=== PATIENT | female | born 1975 | race Caucasian/White ===

== ENCOUNTER 2017-01-20 04:04 | Inpatient (IN) | payer OTHER ==
[~2017-01-20] VITALS: Ht 195.6 cm; Wt 198.3 kg
[2017-01-20 05:18] LABS: CHLORIDE 102 mEq/L (99-109); POTASSIUM 3.8 mEq/L (3.7-5.4); SODIUM 135 mEq/L (136-147)
[2017-01-20 05:20] LABS: GLUCOSE 143 mg/dL (70-99)
[2017-01-20 05:21] LABS: ANION GAP 15 MEQ/L (2-14)
[2017-01-20 05:23] LABS: SERUM ETHYL ALCOHOL < 10 mg/dL
[2017-01-20 05:24] LABS: GFR ESTIMATE (CALCULATED) > 59 mL/min/
[2017-01-20 05:25] LABS: UREA NITROGEN (BUN) 20 mg/dL (9-23)
[2017-01-20 05:35] LABS: BASOPHIL COUNT 0.1 K/uL (0-0.1); EOSINOPHIL (%) 0.1 % (0-5); HEMATOCRIT 46.5 % (36.0-46.0); IMMATURE GRANULOCYTE (%) 0.5 % (0.0-0.7); IMMATURE GRANULOCYTE COUNT 0.1 K/uL; INSTRUMENT ABS NEUTROPHIL CT 13.3 K/uL; LYMPHOCYTE COUNT 2.1 K/uL (1.0-2.8); MCH 28.5 PG (29.0-34.0); MCHC 33.8 G/DL (30.0-36.0); MCV 84.5 FL (83-99); MEAN PLAT.VOLUME 11.4 uM^3 (9.5-12.4); MONOCYTE (%) 5.7 % (3-12); MONOCYTE COUNT 0.9 K/uL (0-0.8); NEUTROPHIL (%) 80.5 % (45-76); NEUTROPHIL COUNT 13.3 K/uL (1.8-6.4); PLATELET COUNT 326 K/uL (156-360); RBC DIS.WIDTH-CV 13.2 % (11.8-14.6); RBC DIS.WIDTH-SD 41.4 % (39-53); WHITE BLOOD COUNT 16.5 K/uL (4.1-10.2)
[2017-01-20 08:18] LABS: ADD MIUA? YES; BILIRUBIN NEGATIVE; BLOOD NEGATIVE; COLOR AMBER ((YELLOW)); GLUCOSE (STRIP) NEGATIVE; KETONES 80; LEUKOCYTES NEGATIVE; NITRITE NEGATIVE; PROTEIN (STRIP) 30; SPECIFIC GRAVITY 1.032 (1.000-1.030)
[2017-01-20 08:20] LABS: ADD MEDTOX COMMENT Y; AMPHETAMINE NEGATIVE (500 ng/mL); BARBITURATES NEGATIVE (200 ng/mL); BENZODIAZEPINES PRESUMPTIVE POSITIVE (150 ng/mL); COCAINE NEGATIVE (150 ng/mL); INTERNAL CONTROLS VALID? YES; METHADONE NEGATIVE (200 ng/mL); METHAMPHETAMINE NEGATIVE (500 ng/mL); OPIATES (MORPHINE) NEGATIVE (100 ng/mL); OXYCODONE NEGATIVE (100 ng/mL); PHENCYCLIDINE NEGATIVE (25 ng/mL); PROPOXYPHENE NEGATIVE (300 ng/mL); THC CANNABINOIDS PRESUMPTIVE POSITIVE (50 ng/mL); TRICYCLIC ANTIDEPRESSANTS NEGATIVE (300 ng/mL)
[2017-01-20 08:40] LABS: CASTS PRESENT /LPF; EPITHELIAL CELLS 2+ /HPF; HYALINE CASTS 0-5 /LPF; MUCUS 3+ /LPF
[2017-01-20 08:41] LABS: BACTERIA NONE SEEN /HPF; CRYSTALS NONE SEEN; RED BLOOD CELLS 0-5 /HPF (0-5); UCUL ADDED? NO; WHITE BLOOD CELLS 0-5 /HPF (0-5)
[2017-01-20 09:07] LABS: BENZODIAZEPINES QUANT VALUE 0 NG/ML; BENZODIAZEPINES, URINE SCREEN Negative (200 ng/mL)
[2017-01-20 12:08] VITALS: BP 135/69
[2017-01-20] MEDS ORDERED: SEROQUEL200 MG PO (13:03)
[2017-01-20] MEDS ORDERED: SEROQUEL50 MG PO (13:05)
[2017-01-20] MEDS ORDERED: GLUCOPHAGE XR,500 MG PO (13:07)
[2017-01-20] MEDS ORDERED: SPIRONOLACTONE100 MG PO (13:08)
[2017-01-20] MEDS ORDERED: LISINOPRIL20 MG PO (13:09)
[2017-01-20] MEDS ORDERED: BAYER CHEWABLE81 MG PO (13:11)
[2017-01-20] MEDS ORDERED: ESTRADIOL2 MG PO (13:17)
[2017-01-20 15:21] VITALS: BP 166/89
[2017-01-20 23:16] LABS: POINT-OF-CARE METER ID UU14188576; POINT-OF-CARE USER ID BHSSMG
[2017-01-21 02:12] VITALS: BP 118/68
[2017-01-22] MEDS ORDERED: NICORELIEF2 MG BC (15:27)
[2017-01-22] MEDS ORDERED: QUETIAPINE FUMA25 MG PO (15:29)
[2017-01-22] MEDS ORDERED: QUETIAPINE FUMA50 MG PO (15:30)
== END 2017-01-21 04:08 | DRG 885 ==
LOC: EME → EDSEX 04:04 → EME 04:04 → EDBD 04:04 → EDOF 09:59 → 1WEST 12:04 → ENRESERV 12:04 → 1WEST 01-21 04:08
PROVIDERS: Emergency Medicine; Psychiatry & Neurology Psychiatry
DX: F20.9 Schizophrenia, unspecified (principal); R45.850 Homicidal ideations; N17.9 Acute kidney failure, unspecified; R45.6 Violent behavior; I10 Essential (primary) hypertension; R73.03 Prediabetes; E03.9 Hypothyroidism, unspecified; F64.9 Gender identity disorder, unspecified; F17.200 Nicotine dependence, unspecified, uncomplicated; E66.9 Obesity, unspecified; Z68.43 Body mass index [BMI] 50.0-59.9, adult; Z91.14 Patient's other noncompliance with medication regimen; Z78.1 Physical restraint status
CPT/HCPCS: 71010; 80048; 81003; 82948; 84999; 85025; 90837; 99281; 99285; G0480; J1630; J2060; Q0177

== ENCOUNTER 2017-01-21 04:05 | Inpatient (IN) | payer OTHER ==
[2017-01-21] VITALS (9 sets, daily range): BP systolic 82–157; BP diastolic 50–91
[~2017-01-21] VITALS: Ht 195.6 cm; Wt 201.0 kg
[~2017-01-21 04:05] MED LIST: BAYER CHEWABLE81 MG PO; ESTRADIOL2 MG PO; GLUCOPHAGE XR,500 MG PO; LISINOPRIL20 MG PO; SEROQUEL200 MG PO; SEROQUEL50 MG PO; SPIRONOLACTONE100 MG PO
[2017-01-21 06:24] LABS: METH RESISTANT S AUREUS PCR NEGATIVE (NEGATIVE)
[2017-01-21 06:26] LABS: PROBE CHECK PASS; SPECIMEN PROCESSING CONTROL PASS
[2017-01-21 06:46] LABS: HEMATOCRIT 42.3 % (36.0-46.0); MCH 28.4 PG (29.0-34.0); MCHC 33.3 G/DL (30.0-36.0); MCV 85.1 FL (83-99); MEAN PLAT.VOLUME 10.9 uM^3 (9.5-12.4); PLATELET COUNT 240 K/uL (156-360); RBC DIS.WIDTH-CV 13.2 % (11.8-14.6); RBC DIS.WIDTH-SD 40.5 % (39-53); RED BLOOD COUNT 4.97 M/uL (3.80-5.20); WHITE BLOOD COUNT 13.4 K/uL (4.1-10.2)
[2017-01-21 07:09] LABS: ALKALINE PHOSPHATASE 46 IU/L (3-129); ANION GAP 11 MEQ/L (2-14); CHLORIDE 99 MEQ/L (99-109); GFR ESTIMATE (CALCULATED) 26 mL/min/; GLUCOSE 117 mg/dL (70-99); SAMPLE HEMOLYSIS CHECK 0; SAMPLE ICTERIC CHECK 0; SAMPLE LIPEMIA CHECK 0; SODIUM 134 MEQ/L (136-147); TOTAL BILIRUBIN 0.9 MG/DL (0.0-1.0); UREA NITROGEN (BUN) 24 mg/dL (9-23)
[2017-01-21 10:23] LABS: BASE EXCESS -3.4 mEq/L (-3 to +3); BICARBONATE 21.4 mEq/L (22-26); CARBOXY HGB 2.2 % (0-5); COMMENTS - BLOOD GASES C+; DEVICE RA; METHEMOGLOBIN 1.5 % (0-1.5); PCO2 37 mm Hg (35-45); PO2 75 mm Hg (80-100); SITE LR; pH 7.37 (7.35-7.45)
[2017-01-21 10:24] LABS: TOTAL RESP RATE 16 resp/min
[2017-01-21 12:04] LABS: POINT-OF-CARE METER ID UU13113731
[2017-01-21 21:26] LABS: POINT-OF-CARE METER ID UU13113731
[2017-01-22] VITALS: BP 159/88
[2017-01-22 04:00] VITALS: BP 173/105
[2017-01-22 05:55] LABS: BASOPHIL COUNT 0.1 K/uL (0-0.1); EOSINOPHIL (%) 0.7 % (0-5); EOSINOPHIL COUNT 0.1 K/uL (0-0.3); HEMATOCRIT 41.3 % (36.0-46.0); IMMATURE GRANULOCYTE (%) 0.4 % (0.0-0.7); INSTRUMENT ABS NEUTROPHIL CT 6.8 K/uL; LYMPHOCYTE COUNT 3.1 K/uL (1.0-2.8); MCH 29.6 PG (29.0-34.0); MCHC 34.9 G/DL (30.0-36.0); MEAN PLAT.VOLUME 11.7 uM^3 (9.5-12.4); MONOCYTE (%) 7.2 % (3-12); MONOCYTE COUNT 0.8 K/uL (0-0.8); NEUTROPHIL (%) 62.8 % (45-76); NEUTROPHIL COUNT 6.8 K/uL (1.8-6.4); PLATELET COUNT 248 K/uL (156-360); RBC DIS.WIDTH-CV 13.4 % (11.8-14.6); RBC DIS.WIDTH-SD 41.7 % (39-53); RED BLOOD COUNT 4.86 M/uL (3.80-5.20); WHITE BLOOD COUNT 10.9 K/uL (4.1-10.2)
[2017-01-22 06:19] LABS: ALKALINE PHOSPHATASE 50 IU/L (3-129); ANION GAP 7 MEQ/L (2-14); CHLORIDE 102 MEQ/L (99-109); GLUCOSE 106 mg/dL (70-99); POTASSIUM 4.3 MEQ/L (3.7-5.4); SAMPLE HEMOLYSIS CHECK 0; SAMPLE ICTERIC CHECK 0; SAMPLE LIPEMIA CHECK 0; SODIUM 134 MEQ/L (136-147); UREA NITROGEN (BUN) 14 mg/dL (9-23)
[2017-01-22 06:20] LABS: GFR ESTIMATE (CALCULATED) > 59 mL/min/; TOTAL BILIRUBIN 0.7 MG/DL (0.0-1.0)
[2017-01-22 08:55] VITALS: BP 151/90
[2017-01-22 10:06] LABS: FERRITIN 460 NG/ML (10-291)
[2017-01-22 11:17] LABS: HBSG INDEX 0.16; HPCA INDEX 0.15
[2017-01-22 11:19] LABS: ANTI-HEPATITIS A VIRUS (IGM) Nonreactive; ANTI-HEPATITIS B CORE (IGM) Nonreactive; HBC IgM INDEX 0.07
[2017-01-22 12:31] LABS: POINT-OF-CARE METER ID UU14208751
[2017-01-22 12:45] VITALS: BP 154/85
[2017-01-22 15:10] LABS: IRON 121 MCG/DL (35-150)
[2017-01-22] MEDS ORDERED: NICORELIEF2 MG BC (15:27)
[2017-01-22] MEDS ORDERED: QUETIAPINE FUMA25 MG PO (15:29)
[2017-01-22] MEDS ORDERED: QUETIAPINE FUMA50 MG PO (15:30)
[2017-01-22 16:30] VITALS: BP 126/81
[2017-01-22 16:45] LABS: POINT-OF-CARE METER ID UU14208751
[2017-01-23] MEDS ORDERED: QUETIAPINE FUMA25 MG PO (10:28)
[2017-01-23] MEDS ORDERED: QUETIAPINE FUMA50 MG PO (10:28)
== END 2017-01-22 16:42 | DRG 189 ==
LOC: 4WEST 04:05 → ENRESERV 04:05 → 4WEST 04:09 → CANRESERV 01-22 10:45 → ENRESERV 01-22 10:45 → CANRESERV 01-22 10:50 → ENRESERV 01-22 10:50 → 4WEST 01-22 16:42
PROVIDERS: Internal Medicine
DX: J96.01 Acute respiratory failure with hypoxia (principal); F20.9 Schizophrenia, unspecified; N17.9 Acute kidney failure, unspecified; E66.01 Morbid (severe) obesity due to excess calories; Z78.1 Physical restraint status; I95.2 Hypotension due to drugs; F43.9 Reaction to severe stress, unspecified; I10 Essential (primary) hypertension; E11.9 Type 2 diabetes mellitus without complications; E03.9 Hypothyroidism, unspecified; G47.30 Sleep apnea, unspecified; W22.09XA Striking against other stationary object, initial encounter; D72.829 Elevated white blood cell count, unspecified; K21.9 Gastro-esophageal reflux disease without esophagitis; F22 Delusional disorders; Z91.19 Patient's noncompliance with other medical treatment and regimen; F64.9 Gender identity disorder, unspecified
CPT/HCPCS: 36600; 80053; 80074; 82728; 82803; 82948; 83540; 84466; 85025; 85027; 87641; 99202; J1630; J1644; J1815; J2060; J7030

== ENCOUNTER 2017-01-22 15:33 | Inpatient (IN) | payer OTHER ==
[~2017-01-22] VITALS: Ht 193 cm; Wt 193.0 kg
[~2017-01-22 15:33] MED LIST changes: +NICORELIEF2 MG BC; +QUETIAPINE FUMA25 MG PO; +QUETIAPINE FUMA50 MG PO
[2017-01-22 16:53] VITALS: BP 131/85
[2017-01-22 16:56] VITALS: BP 131/85
[2017-01-22 16:59] VITALS: BP 131/85
[2017-01-23] MEDS ORDERED: QUETIAPINE FUMA50 MG PO (10:28)
[2017-01-23] MEDS ORDERED: QUETIAPINE FUMA25 MG PO (10:28)
== END 2017-01-23 13:04 | disposition home or self-care (01) | DRG 885 ==
LOC: 1WEST 15:33 → ENRESERV 16:09 → 1WEST 16:52
DX: F20.9 Schizophrenia, unspecified (principal); Z91.14 Patient's other noncompliance with medication regimen; F64.9 Gender identity disorder, unspecified; R45.86 Emotional lability; E03.9 Hypothyroidism, unspecified; I10 Essential (primary) hypertension; R73.03 Prediabetes; E66.9 Obesity, unspecified; Z68.43 Body mass index [BMI] 50.0-59.9, adult

== ENCOUNTER 2017-01-25 18:04 | Inpatient (IN) | payer OTHER ==
[~2017-01-25] VITALS: Ht 198.1 cm; Wt 196.9 kg
[~2017-01-25 18:04] MED LIST changes: -SEROQUEL200 MG PO; -SEROQUEL50 MG PO
[2017-01-25 20:47] LABS: HEMATOCRIT 41.4 % (36.0-46.0); MCH 28.5 PG (29.0-34.0); MCHC 33.8 G/DL (30.0-36.0); MCV 84.3 FL (83-99); MEAN PLAT.VOLUME 11.1 uM^3 (9.5-12.4); PLATELET COUNT 240 K/uL (156-360); RBC DIS.WIDTH-SD 39.9 % (39-53); RED BLOOD COUNT 4.91 M/uL (3.80-5.20); WHITE BLOOD COUNT 13.5 K/uL (4.1-10.2)
[2017-01-25 20:57] LABS: CHLORIDE 101 mEq/L (99-109); POTASSIUM 3.9 mEq/L (3.7-5.4); SODIUM 133 mEq/L (136-147)
[2017-01-25 20:59] LABS: GLUCOSE 128 mg/dL (70-99)
[2017-01-25 21:00] LABS: ANION GAP 9 MEQ/L (2-14)
[2017-01-25 21:02] LABS: GFR ESTIMATE (CALCULATED) > 59 mL/min/; SERUM ETHYL ALCOHOL < 10 mg/dL
[2017-01-25 21:04] LABS: UREA NITROGEN (BUN) 11 mg/dL (9-23)
[2017-01-25 21:06] LABS: SALICYLATE < 5.0 MG/DL (15-30)
[2017-01-26 00:51] VITALS: BP 124/62
[2017-01-26 01:13] LABS: POINT-OF-CARE METER ID UU14188576; POINT-OF-CARE USER ID ENVTLS63
[2017-01-26 01:20] LABS: ADD MEDTOX COMMENT Y; AMPHETAMINE NEGATIVE (500 ng/mL); BARBITURATES NEGATIVE (200 ng/mL); BENZODIAZEPINES PRESUMPTIVE POSITIVE (150 ng/mL); COCAINE NEGATIVE (150 ng/mL); INTERNAL CONTROLS VALID? YES; METHADONE NEGATIVE (200 ng/mL); METHAMPHETAMINE NEGATIVE (500 ng/mL); OPIATES (MORPHINE) NEGATIVE (100 ng/mL); OXYCODONE NEGATIVE (100 ng/mL); PHENCYCLIDINE NEGATIVE (25 ng/mL); PROPOXYPHENE NEGATIVE (300 ng/mL); THC CANNABINOIDS PRESUMPTIVE POSITIVE (50 ng/mL); TRICYCLIC ANTIDEPRESSANTS NEGATIVE (300 ng/mL)
[2017-01-26 01:57] LABS: BENZODIAZEPINES QUANT VALUE 0 NG/ML; BENZODIAZEPINES, URINE SCREEN Negative (200 ng/mL)
[2017-01-26 07:55] VITALS: BP 124/69
[2017-01-26 16:00] VITALS: BP 138/63
[2017-01-27 07:42] VITALS: BP 120/72
[2017-01-27 15:29] VITALS: BP 152/84
[2017-01-28 07:43] VITALS: BP 163/94
[2017-01-28 14:00] VITALS: BP 145/76
[2017-01-28 15:37] VITALS: BP 129/70
[2017-01-29] MEDS ORDERED: SEROQUEL50 MG PO (19:38)
[2017-01-29] MEDS ORDERED: SEROQUEL200 MG PO (19:38)
[2017-01-30 04:54] LABS: POINT-OF-CARE METER ID UU14188576; POINT-OF-CARE USER ID ENVTLS63
[2017-01-30 08:10] VITALS: BP 149/74
[2017-01-30] MEDS ORDERED: LAMICTAL25 MG PO (14:41)
[2017-01-30] MEDS ORDERED: CLONAZEPAM1 MG PO (14:41)
[2017-01-30 15:44] VITALS: BP 11/59
[2017-01-30 15:52] LABS: POINT-OF-CARE METER ID UU14188576
== END 2017-01-30 18:06 | disposition short-term general hospital (02) | DRG 885 ==
LOC: EME 18:04 → 1WEST 22:09 → EDOF 22:09 → ENRESERV 01-26 00:10 → 1WEST 01-26 00:42
PROVIDERS: Emergency Medicine; Psychiatry & Neurology Psychiatry
DX: F20.0 Paranoid schizophrenia (principal); F64.9 Gender identity disorder, unspecified; R41.0 Disorientation, unspecified; I10 Essential (primary) hypertension; F23 Brief psychotic disorder; F12.90 Cannabis use, unspecified, uncomplicated; E66.01 Morbid (severe) obesity due to excess calories; R45.6 Violent behavior; F60.89 Other specific personality disorders; R45.1 Restlessness and agitation; Z78.1 Physical restraint status; Z68.43 Body mass index [BMI] 50.0-59.9, adult
CPT/HCPCS: 80048; 82948; 84999; 85027; 90837; 97150 GO; 97166 GO; 99281; 99285; G0480; J1630; J2060; J3486